=== PATIENT | male | born 1985 | race Caucasian/White ===

== ENCOUNTER 2017-08-04 09:20 | Emergency (ER) | payer BC, OTHER ==
[~2017-08-04] VITALS: Ht 175.3 cm; Wt 86.2 kg
[2017-08-04 09:37] LABS: URINE BILIRUBIN NEGATIVE (Negative); URINE BLOOD 2+ (Negative); URINE CLARITY CLEAR; URINE COLOR YELLOW; URINE GLUCOSE-RANDOM* NEGATIVE (Negative); URINE KETONES NEGATIVE (Negative); URINE LEUKOCYTES NEGATIVE (Negative); URINE NITRITE NEGATIVE (Negative); URINE PROTEIN (DIPSTICK) NEGATIVE (Negative); URINE UROBILINOGEN 0.2 E.U./dl (0.2-1.0)
[2017-08-04 09:46] LABS: AMORPHOUS PHOSPHATES Moderate /LPF (None Seen); BACTERIA None Seen /HPF (None Seen); CASTS None Seen /LPF (None Seen); SQUAMOUS None Seen /LPF (0-3); URINE WBC None Seen /HPF (0-5)
[2017-08-04] MEDS ORDERED: FLOMAX0.4 MG PO (10:40)
[2017-08-04] MEDS ORDERED: HYDROCODONE-AP1 EAC6 PO (10:40)
== END 2017-08-04 10:47 | disposition home or self-care (01) ==
LOC: ER 09:20
PROVIDERS: Physician Assistant
DX: N50.812 Left testicular pain (principal); R31.9 Hematuria, unspecified; R10.32 Left lower quadrant pain